=== PATIENT | female | born 2000 | race Hispanic/Latino ===

== ENCOUNTER 2024-05-01 18:09 | Emergency (ER) | payer OTHER ==
[2024-05-01] MEDS ORDERED: KETOROLAC 30 MG/ML INJ ONE (18:35)
[2024-05-01] MEDS ORDERED: NA CHLORIDE 0.9% 1,000 ML ONE (18:35)
[2024-05-01] MEDS ORDERED: ONDANSETRON 4 MG/2 ML VIAL ONE (18:35)
[2024-05-01 18:57] LABS: Specific Gravity 1.007 (1.005-1.030)
[2024-05-01 18:59] LABS: Absolute Eosinophils 0.2 K/uL (0-0.5); Absolute Lymphocytes (CBC) 3.4 K/uL (0.7-4.9); Absolute Monocytes 0.6 K/uL (0.1-1.3); Absolute Neutrophil 4.8 K/uL (1.8-8.0); Basophils % 0.5 % (0-1.3); Eosinophils % 2.7 % (0-4.4); Hematocrit 41.9 % (36.0-45.0); Hemoglobin 13.6 g/dL (12.0-15.0); Lymphocytes % 37.4 % (15.3-44.8); MCH 28.4 pg (27.0-35.0); MCHC 32.4 g/dL (32.0-36.0); MCV 87.6 fL (80-100); MPV 9.2 fL (7.6-11.3); Neutrophils % 52.4 % (41.7-73.7); Platelets 228 thou/uL (152-406); RBC Red Blood Cell Count 4.78 M/uL (3.86-4.86); Red Cell Distribution Width 13.4 % (12.1-15.2)
[2024-05-01 19:00] LABS: Specific Gravity 1.007 (1.005-1.030); Sqamous Epithelial <5 /HPF (None Seen); Urine Bacteria <20 /HPF (<20); Urine Bilirubin NEGATIVE (Negative); Urine Blood 2+ (Negative); Urine Clarity Turbid (Clear); Urine Color Colorless (Yellow); Urine Culture Reflex Order NOT NEEDED; Urine Glucose NEGATIVE (Negative); Urine Ketones NEGATIVE (Negative); Urine Microscopic Reflex YN ORDER UMIC; Urine Nitrite NEGATIVE (Negative); Urine Protein NEGATIVE (Negative); Urine RBC <5 /HPF (None Seen); Urine Urobilinogen Normal (Normal); Urine WBC <5 /HPF (<5)
[2024-05-01 19:13] LABS: ALT/SGPT 21 U/L (13-56); AST/SGOT < 10 U/L (15-37); Albumin 3.8 g/dL (3.4-5.0); Albumin/Globulin Ratio 1.1 (1.1-1.8); Alkaline Phosphatase 60 U/L (45-117); Anion Gap 6.6 mEq/L (5.0-15.0); BUN Blood Urea Nitrogen 11 mg/dL (7-18); Bicarbonate 28 mEq/L (21-32); Bilirubin Total 0.2 mg/dL (0.2-1.0); Globulin 3.5 g/dL (2.3-3.5); Glomerular Filtration Rate 105 ml/min (=/>90); Glucose Level 102 mg/dL (74-106); Lipase 42 U/L (13-75); Potassium 3.6 mEq/L (3.5-5.1); Protein, Total 7.3 g/dL (6.4-8.2); Sodium Level 139 mEq/L (136-145)
--- NOTE | 2024-05-01 19:37 | RAD REPORT ---
EXAM DESCRIPTION: US - Abdomen Exam Limited - 05/01/2024 6:37 pm CLINICAL HISTORY: Abdominal pain. COMPARISON: None. FINDINGS: 2 centimeter stone within the neck of the gallbladder. Gallbladder wall is mildly thickene d. Mild gallbladder distention Biliary tree normal caliber IMPRESSION: Stone within the neck of the gallbladder may be impacted. Mild gallbladder wall thickening probably indicates cholecystitis
--- NOTE | 2024-05-01 19:39 | RAD REPORT ---
EXAM DESCRIPTION: CT - Abdomen Pelvis W Contrast - 05/01/2024 7:16 pm CLINICAL HISTORY: Abdominal pain COMPARISON: none. TECHNIQUE: Computed axial tomography of the abdomen pelvis was obtained. 100 cc Isovue-300 was admin istered intravenously. Oral contrast was not requested which limits evaluation of bowel and appendix All CT scans are performed using dose optimization technique as appropriate and may include automated exposure control or mA/KV adjustment according to patient size. FINDINGS: 2 centimeter stone within neck of the gallbladder. Mild gallbladder wall thickening. Gallb ladder is mildly distended The liver, spleen, pancreas, adrenal and kidneys appear unremarkable. There is no evidence of diverticulitis. Normal appendix. No adnexal mass IMPRESSION: Cholelithiasis Mildly thickened gallbladder wall probably indicates cholecystitis
[2024-05-01] MEDS ORDERED: PIPERACIL/TAZO 3.375 GM VIAL IV ONE (20:22)
[2024-05-01] MEDS ORDERED: NA CHLORIDE 0.9% 100 ML ONE (20:22)
--- NOTE | 2024-05-01 20:53 | EDPHYS ---
Physician Documentation [facility] Name: Delaney Mueller Age: 23 yrs Sex: Female : 2000 Arrival Date: 05/01/2024 Time: 18:09 Bed 14 Private MD: ED Physician Chriss Hill HPI: 05/01 18:23 This 23 yrs old Female presents to ER via Ambulatory with complaints of sb4 abdominal pain. 18:23 The patient presents with abdominal pain in the right upper quadrant. Onset: The sb4 symptoms/episode began/occurred 4 year(s) ago, and became worse yesterday. The symptoms radiate to the right flank. Associated signs and symptoms: Pertinent positives: nausea and vomiting. Modifying factors: The symptoms are alleviated by nothing, the symptoms are aggravated by food. intermittent RUQ pain x 4 years. saw GI, had negative HIDA scan 2 years ago, pain got worse yesterday. Historical: - Allergies: 18:21 No Known Allergies; ph - PMHx: 18:21 None; ph - PSHx: 18:21 section; ph - Immunization history:: Adult Immunizations unknown. - Infectious Disease History:: Denies. - Social history:: Smoking status: Patient denies any tobacco usage or history of. ROS: 18:23 Constitutional: Negative for fever, chills, and weight loss, sb4 18:23 Abdomen/GI: Positive for abdominal pain, nausea and vomiting, 18:23 All other systems are negative, Exam: 18:23 Constitutional: This is a well developed, well nourished patient who is awake, alert, sb4 and in no acute distress. Head/Face: Normocephalic, atraumatic. Eyes: Extra-ocular motions intact. Periorbital areas with no swelling, redness, or edema. ENT: Mucous membranes moist. Cardiovascular: Regular rate and rhythm with a normal S1 and S2. Respiratory: Lungs have equal breath sounds bilaterally, clear to auscultation and percussion. No rales, rhonchi or wheezes noted. No increased work of breathing, no retractions or nasal flaring. Skin: Warm, dry with normal turgor. Normal color with no rashes, no lesions, and no evidence of cellulitis. MS/ Extremity: Pulses equal, no cyanosis. Neurovascular intact. Full, normal range of motion. Neuro: Awake and alert, GCS 15, oriented to person, place, time, and situation. Motor strength 5/5 in all extremities. Sensory grossly intact. 18:23 Abdomen/GI: Inspection: abdomen appears normal, Bowel sounds: normal, Palpation: soft, mild abdominal tenderness, in the right upper quadrant, Vital Signs: 18:20 BP 161 / 103; Pulse 72; Resp 18; Temp 97.8; Pulse Ox 100% on R/A; Weight 76.2 kg; ph Height 5 ft. 2 in. ; 19:19 BP 135 / 84; Pulse 70; Resp 17; Pulse Ox 99% on R/A; rs5 20:54 BP 135 / 87; Pulse 56; Resp 17; Temp 97.7(TE); Pulse Ox 100% on R/A; Pain 3/10; tm6 18:20 Body Mass Index 30.73 (76.20 kg, 157.48 cm) ph 20:54 Pain Scale: Adult tm6 MDM: 18:14 Patient medically screened. sb4 20:20 ED course: discussed findings of mild cholecystitis with patient. I spoke with Dr. sepideh Cunha who offered dispo with close follow up vs admission for lap sanna. patient prefers to go home and will follow up. her pain has improved, vitals are stable, labs are WNL, I believe this is a reasonable plan and she is safe for discharge home. 20:23 Data reviewed: vital signs, nurses notes, lab test result(s), radiologic studies, and sb4 as a result, I will discharge patient. Consideration of Admission/Observation Escalation of care including admission/observation considered. Counseling: I had a detailed discussion with the patient and/or guardian regarding the historical points, exam findings, and any diagnostic results supporting the discharge/admit diagnosis, lab results, radiology results, to return to the emergency department if symptoms worsen or persist or if there are any questions or concerns that arise at home. 05/01 18:19 Order name: CBC with Diff; Complete Time: 19:02 sb4 05/01 18:19 Order name: CMP; Complete Time: 19:14 sb4 05/01 18:19 Order name: Lipase; Complete Time: 19:14 sb4 05/01 18:19 Order name: Test, Urine; Complete Time: 18:57 sb4 05/01 18:19 Order name: Urinalysis w/ reflexes; Complete Time: 19:02 sb4 05/01 18:19 Order name: Abdomen Limited US; Complete Time: 19:38 sb4 05/01 18:19 Order name: CT Abd/Pelvis - IV Contrast Only; Complete Time: 19:41 sb4 05/01 18:19 Order name: IV Saline Lock; Complete Time: 18:52 sb4 05/01 18:20 Order name: Labs collected and sent; Complete Time: 18:52 sb4 Administered Medications: 18:40 Drug: NS 0.9% IV 1000 ml IV at 1 bolus Per protocol; 1000 mL bolus Route: IV; Rate: 1 rs5 bolus; Site: right antecubital; 19:00 Follow up: Response: No adverse reaction rs5 18:40 Drug: TORadol - Ketorolac IVP 15 mg IVP once Route: IVP; Site: right antecubital; rs5 19:00 Follow up: Response: No adverse reaction rs5 18:40 Drug: Ondansetron IVP 4 mg IVP once; over 2 minutes Route: IVP; Site: right antecubital;rs5 19:00 Follow up: Response: No adverse reaction rs5 20:12 Drug: Piperacillin-Tazobactam IVPB 3.375 grams IVPB once over 60 mins; (mix in NS 100 rs5 mL) Route: IVPB; Infused Over: 60 mins; Site: right antecubital; Disposition: 23:59 Co-signature as Attending Physician, Chriss Hill MD I reviewed the patient's care rt provided by the Advanced Practice Provider and agree with the diagnosis and treatment plan. Disposition Summary: 05/01/24 20:53 Discharge Ordered Notes: Location: Home sb4 Problem: an ongoing problem sb4 Symptoms: have improved sb4 Condition: Stable sb4 Diagnosis - Cholelithiasis with cholecystitis sb4 Followup: sb4 - With: Farrukh Cunha MD - When: 1 - 2 days - Reason: Recheck today's complaints, Re-evaluation by your physician Discharge Instructions: - Discharge Summary Sheet sb4 - Gallbladder Eating Plan sb4 Forms: - Prescription Opioid Use sb4 - Patient Portal Instructions sb4 - Leadership Thank You Letter sb4 Prescriptions: - Zofran 4 mg Oral Tablet - take 1 tablet ORAL route every 12 hours As needed; 20 tablet; Refills: 0, sb4 Product Selection Permitted - Tramadol 50 mg Oral Tablet - take 1 tablet ORAL route every 8 hours as needed; 12 tablet; Refills: 0, sb4 Product Selection Permitted Signatures: Dispatcher [employer] Funmilayo Matos, RN RN Telma Martinez, PANayeC PANayeC sb4 Chriss Hill MD MD rt Eduardo Kramer RN RN rs5 Corrections: (The following items were deleted from the chart) 18:20 18:20 Abdomen Limited+US.RAD.BRZ ordered. EDMS EDMS 18:20 18:20 Abdomen Pelvis W Con+CT.RAD.BRZ ordered. EDMS EDMS
--- NOTE | 2024-05-01 20:53 | ER ---
Nurse's Notes [facility] Name: Delaney Mueller Age: 23 yrs Sex: Female : 2000 Arrival Date: 05/01/2024 Time: 18:09 Bed 14 Private MD: Diagnosis: Cholelithiasis with cholecystitis Presentation: 05/01 18:20 Chief complaint: Patient states: RUQ pain that radiates to back, N/V and dizziness. ph Coronavirus screen: Vaccine status: Patient reports receiving the 2nd dose of the covid vaccine. Ebola Screen: No symptoms or risks identified at this time. Initial Sepsis Screen: Does the patient meet any 2 criteria? No. Patient's initial sepsis screen is negative. Does the patient have a suspected source of infection? No. Patient's initial sepsis screen is negative. Risk Assessment: Do you want to hurt yourself or someone else? Patient reports no desire to harm self or others. Onset of symptoms was May 01, 2024. 18:20 Method Of Arrival: Ambulatory 18:20 Acuity: JOELLE 3 ph Historical: - Allergies: 18:21 No Known Allergies; ph - PMHx: 18:21 None; ph - PSHx: 18:21 section; ph - Immunization history:: Adult Immunizations unknown. - Infectious Disease History:: Denies. - Social history:: Smoking status: Patient denies any tobacco usage or history of. Screenin:15 [facility] ED Fall Risk Assessment (Adult) History of falling in the last 3 months, rs5 including since admission No falls in past 3 months (0 pts) Confusion or Disorientation No (0 pts) Intoxicated or Sedated No (0 pts) Impaired Gait No (0 pts) Mobility Assist Device Used No (0 pt) Altered Elimination No (0 pt) Score/Fall Risk Level 0 - 2 = Low Risk Oriented to surroundings, Maintained a safe environment. Abuse screen: Denies threats or abuse. Nutritional screening: No deficits noted. Tuberculosis screening: No symptoms or risk factors identified. Assessment: 18:15 General: Appears in no apparent distress. uncomfortable, Behavior is calm, cooperative. rs5 Pain: Complains of pain in right upper quadrant Pain radiates to back Pain currently is 7 out of 10 on a pain scale. Quality of pain is described as aching, Is continuous. Neuro: Level of Consciousness is awake, alert, obeys commands, Oriented to person, place, time, situation. Cardiovascular: Patient's skin is warm and dry. Respiratory: Airway is patent Respiratory effort is even, unlabored, Respiratory pattern is regular, symmetrical. 18:15 GI: Abdomen is round non-distended, Abd is soft and non tender X 4 quads. : No signs rs5 and/or symptoms were reported regarding the genitourinary system. EENT: No signs and/or symptoms were reported regarding the EENT system. Derm: Skin is intact, Skin is pink, warm \T\ dry. Musculoskeletal: Range of motion: intact in all extremities. 19:19 Reassessment: Patient and/or family updated on plan of care and expected duration. Pain rs5 level reassessed. Patient is alert, oriented x 3, equal unlabored respirations, skin warm/dry/pink. Patient denies pain at this time. Patient states feeling better. 20:13 Reassessment: Patient and/or family updated on plan of care and expected duration. Pain rs5 level reassessed. Patient is alert, oriented x 3, equal unlabored respirations, skin warm/dry/pink. 21:02 Reassessment: Patient appears in no apparent distress at this time. Patient and/or tm6 family updated on plan of care and expected duration. Pain level reassessed. Patient is alert, oriented x 3, equal unlabored respirations, skin warm/dry/pink. Vital Signs: 18:20 BP 161 / 103; Pulse 72; Resp 18; Temp 97.8; Pulse Ox 100% on R/A; Weight 76.2 kg; ph Height 5 ft. 2 in. ; 19:19 BP 135 / 84; Pulse 70; Resp 17; Pulse Ox 99% on R/A; rs5 20:54 BP 135 / 87; Pulse 56; Resp 17; Temp 97.7(TE); Pulse Ox 100% on R/A; Pain 3/10; tm6 18:20 Body Mass Index 30.73 (76.20 kg, 157.48 cm) ph 20:54 Pain Scale: Adult tm6 ED Course: 18:12 Patient arrived in ED. im 18:13 Telma Conde PA-C is [facility]. sb4 18:13 Chriss Hill MD is Attending Physician. sb4 18:15 Patient has correct armband on for positive identification. Bed in low position. Call rs5 light in reach. Side rails up X2. 18:15 No provider procedures requiring assistance completed. rs5 18:16 Eduardo Kramer, CALLI is Primary Nurse. rs5 18:20 Inserted saline lock: 20 gauge in right antecubital area, using aseptic technique. rs5 18:21 Triage completed. ph 18:22 Arm band placed on Patient placed in an exam room. ph 18:38 Abdomen Limited US In Process Unspecified. EDMS 19:18 CT Abd/Pelvis - IV Contrast Only In Process Unspecified. EDMS 20:53 Farrukh Cunha MD is Referral Physician. sb4 21:03 Provided Education on: gallbladder eating plan. tm6 21:03 IV discontinued, intact, bleeding controlled, No redness/swelling at site. Pressure tm6 dressing applied. Administered Medications: 18:40 Drug: NS 0.9% IV 1000 ml IV at 1 bolus Per protocol; 1000 mL bolus Route: IV; Rate: 1 rs5 bolus; Site: right antecubital; 19:00 Follow up: Response: No adverse reaction rs5 18:40 Drug: TORadol - Ketorolac IVP 15 mg IVP once Route: IVP; Site: right antecubital; rs5 19:00 Follow up: Response: No adverse reaction rs5 18:40 Drug: Ondansetron IVP 4 mg IVP once; over 2 minutes Route: IVP; Site: right antecubital;rs5 19:00 Follow up: Response: No adverse reaction rs5 20:12 Drug: Piperacillin-Tazobactam IVPB 3.375 grams IVPB once over 60 mins; (mix in NS 100 rs5 mL) Route: IVPB; Infused Over: 60 mins; Site: right antecubital; Medication: 20:13 VIS not applicable for this client. rs5 Outcome: 20:53 Discharge ordered by . sb4 21:02 Discharged to home ambulatory, with family, tm6 21:02 Condition: stable 21:02 Discharge instructions given to patient, family, Instructed on discharge instructions, follow up and referral plans. medication usage, gallbladder eating plan Demonstrated understanding of instructions, follow-up care, gallbladder eating plan Prescriptions given X 2, 21:03 Patient left the ED. tm6 Signatures: Dispatcher [employer] Funmilayo Matos RN RN ph Telma Conde PAEmam PANayeC sb4 Eduardo Kramer RN RN rs5 Neha Martínez Tawney RN RN tm6 Corrections: (The following items were deleted from the chart) 20:51 12:10 Piperacillin-Tazobactam IVPB 3.375 grams IVPB in right antecubital over 60 mins rs5 rs5
[2024-05-01 21:11] VITALS: BP 135/87; TEMP 97.7; O2SAT 100
== END 2024-05-01 21:03 | disposition home or self-care (01) ==
LOC: ER 18:09
DX: K80.10 Calculus of gallbladder with chronic cholecystitis without obstruction (principal)
CPT/HCPCS: 85025; 81001; 36415; 81025; 83690; 80053; 74177; 76705; 96375; 96374; 99284; Q9967; J2543; J2405; J7030